=== PATIENT | female | born 1955 | race Caucasian/White ===

== ENCOUNTER → 2016-03-18 | Day surgery (SDC) | payer OTHER ==
[~2016-03-18] MED LIST: ACETAMINOPHEN/HYDROcodone 325 MG/5 MG TAB ONE; APREPITANT 40 MG CAP ONE; BUPIVACAINE/EPINEPHRINE 0.5% PF 30 ML VIAL ONE; BUPR-197 PO; KETOROLAC TROMETHAMINE 30 MG/ML (IVP) VIAL IV PUSH ONE; LACTATED RINGER'S 1000 ML INJ 1,000 ML ONE; MIDAZOLAM HCL 2 MG/2 ML VIAL ONE; ONDANSETRON HCL 4 MG/2 ML VIAL IV PUSH ONE; PROPOFOL 200 MG/20 ML AMP IV ONE; SING4GRA PO; SYNT137T PO; [UNRECOGNIZED DRUG - CODE] EX; ceFAZolin INJ 1,000 MG VIAL ONE; metroNIDAZOLE 500 MG INJ 100 ML IV ONE
--- NOTE | 2016-03-18 09:58 | TN ---
cc: COURTNEY CARTER DR., VISHAL M.D. BIANCHI, JOSEPH D. M.D. DATE OF SURGERY: 03/18/2016 PREOPERATIVE DIAGNOSIS Cholelithiasis, cholecystitis. POSTOPERATIVE DIAGNOSIS Cholelithiasis, cholecystitis. PROCEDURE Laparoscopic cholecystectomy. ANESTHESIA General. SURGEON Dr. Jean Baptiste. INDICATIONS This is a pleasant 60-year-old female who was evaluated and found to have biliary colic. Plans were made for above. PROCEDURE The patient was taken to the operating room and placed in the supine position. After endotracheal anesthesia her abdomen was prepped with Betadine. We make incision after time-out is done and she is given preoperative antibiotics just above the umbilicus. Veress needle was inserted, saline load test was performed. The abdomen was insufflated to 15 mmHg. 10 mm trocar was introduced. Camera was introduced, two other working ports were placed 5 mm below the xyphoid, 5 mm in between the two previously placed ports. The gallbladder can be seen, is obviously chronically inflamed with adhesions along the omentum which were taken down with blunt dissection. We are able to dissect up identifying the cystic duct, cystic artery which is very anterior which is doubly ligated and transected. The cystic duct is then doubly ligated, transected. She has aberrant venous drainage into the liver that is doubly ligated as well and the gallbladder is then teased off the gallbladder bed. Large stone is present within the gallbladder, placed in EndoCatch and pulled out through the umbilical incision which must be elongated because of the size of the gallbladder and the stone. The area is then irrigated. We checked the liver, there is excellent hemostasis without biliary leakage, liver is smooth, peritoneal surface is smooth. There is minimal adhesions in her abdomen. The trocars were removed after the irrigating solution is removed. We then are able to close the fascial layer with 0 Vicryl at the umbilicus and skin with 4-0 Vicryl. Steri-Strips were applied. Sterile bandage was applied. The patient tolerated the procedure well and had no immediate postop complications. Ladarius Jean Baptiste MD JDB/YOLANDA /9:34 AM /9:41 AM
== END | disposition home or self-care (01) ==
LOC: ESDC 06:52
PROVIDERS: ATTEND Surgery
DX: K80.10 Calculus of gallbladder with chronic cholecystitis without obstruction (principal)
CPT/HCPCS: 00790; 47562; 88304; J0690; J1885; J2250; J2405; J3010; J7120; J8501